=== PATIENT | female | born 1960 | race Caucasian/White ===

== ENCOUNTER → 2020-03-02 | Outpatient (CLI) | payer BC | LOC: LABNPT 14:53 | PROVIDERS: ATTEND Family Medicine | DX: R30.0 Dysuria (principal) | CPT/HCPCS: 87088 ==

== ENCOUNTER → 2022-07-08 | Outpatient (CLI) | payer BC | LOC: FS 16:54 | PROVIDERS: ATTEND Registered Nurse Emergency | DX: N39.0 Urinary tract infection, site not specified (principal); L20.9 Atopic dermatitis, unspecified; L82.1 Other seborrheic keratosis | CPT/HCPCS: 87077; 87088; 87186 ==